=== PATIENT | male | born 1975 | race African-American/Black ===

== ENCOUNTER 2017-09-23 13:09 | Inpatient (IN) | payer OTHER ==
[2017-09-23 13:46] VITALS: BMI 25.8
--- NOTE | 2017-09-23 16:45 | HP ---
CIWA Score - CIWA Score Nausea/Vomitin Muscle Tremors: 4-Moderate,w/Arms Extend Anxiety: 4-Mod. Anxious/Guarded Agitation: 1-Slight > Activity Paroxysmal Sweats: 1-Minimal Palms Moist Orientation: 0-Oriented Tacttile Disturbances: 0-None Auditory Disturbances: 0-None Visual Disturbances: 0-None Headache: 2-Mild CIWA-Ar Total Score: 15 Admission ROS BHS - HPI Chief Complaint: Here for alcohol withdrawal. Allergies/Adverse Reactions: Allergies Allergy/AdvReac Type Severity Reaction Status Date / Time avocado Allergy Severe Hives Verified 09/23/17 13:50 NKDA Allergy Uncoded 09/23/17 13:50 History of Present Illness: Hx alcohol use since age 18. Currently drink vodka, rum, and or beer. Drinks about 12 cans beer and 3-4 pints daily. last drink last night. Hx blackouts in past. No hx. seizures. Marijuana use from age 18. Last use 2-3 days ago. Denies other substance use. Denies significant PMH/PSH. Was detoxed at [facility] about 3 months and maintained sobriety less than 1 week. Is willing to consider maintenance mediation post discharge such as Naltrexone. - Ebola screening Have you traveled outside of the country in the last 21 days: No Have you had contact with anyone from an Ebola affected area: No Have you been sick,other than usual withdrawal symptoms: No Do you have a fever: No - Review of Systems Constitutional: Chills, Loss of Appetite, Unintentional Wgt. Loss (Lost 7-8 lbs over last 2 months.) EENT: reports: No Symptoms Reported Respiratory: reports: No Symptoms reported Cardiac: reports: No Symptoms Reported GI: reports: Nausea : reports: Dysuria (2 weeks ago and evaluated by PCP.) Musculoskeletal: reports: Muscle Pain (states muscle throbbing r/t alcohol withdrawal) Integumentary: reports: No Symptoms Reported Neuro: reports: Headache, Tremors (r/t alcohol withdrawal) Endocrine: reports: No Symptoms Reported (Denies DM or thyroid disorders), Unexplained Weight Loss Hematology: reports: No Symptoms Reported Psychiatric: reports: Orientated x3, Agitated (Voicing concern about admission.) , Anxious (r/t alcohol withdrawal) Patient History - Patient Medical History Hx Asthma: No Hx Chronic Obstructive Pulmonary Disease (COPD): No Hx Cardiac Disorders: No Hx Hypertension: No Hx Hypercholesterolemia: No Hx Pacemaker: No HX Cerebrovascular Accident: No Hx Seizures: No Hx Dementia: No Hx Diabetes: No Hx Gastrointestinal Disorders: No Hx Liver Disease: No Hx Genitourinary Disorders: No Hx Sexually Transmitted Disorders: No Hx Renal Disease (ESRD): No Hx Thyroid Disease: No Hx Human Immunodeficiency Virus (HIV): No (Negative 90 days ago @ [facility]) Hx Hepatitis C: No Hx Depression: No Hx Suicide Attempt: No Hx Bipolar Disorder: No Hx Schizophrenia: No - Patient Surgical History Past Surgical History: Yes Hx Neurologic Surgery: No Hx Cataract Extraction: No Hx Cardiac Surgery: No Hx Lung Surgery: No Hx Breast Surgery: No Hx Breast Biopsy: No Hx Abdominal Surgery: No Hx Appendectomy: No Hx Cholecystectomy: No Hx Genitourinary Surgery: No Hx Section: No Hx Orthopedic Surgery: No Other Surgical History: right inguinal hernia repair in 2010 Anesthesia Reaction: No - PPD History Previous Implant?: Yes Documented Results: Negative w/o proof Implanted On Prior R Admission?: No PPD to be Administered?: Yes - Reproductive History Patient is a Female of Child Bearing Age (11 -55 yrs old): No - Smoking Cessation Smoking history: Current every day smoker Have you smoked in the past 12 months: Yes Aproximately how many cigarettes per day: 6 Hx Chewing Tobacco Use: No Initiated information on smoking cessation: Yes 'Breaking Loose' booklet given: 09/23/17 - Substance & Tx. History Hx Alcohol Use: Yes Hx Substance Use: Yes Substance Use Type: Marijuana Hx Substance Use Treatment: Yes ([facility] 3 months ago) - Substances Abused Alcohol-vodka/rum/beer Route: Oral Frequency: Daily Amount used: 5 pts./2-6 pks. Age of first use: 18 Date of Last Use: 09/22/17 Marijuana Route: Smoking Frequency: 1-2 times per week Amount used: $10 Age of first use: 18 Date of Last Use: 09/21/17 Family Disease History - Family Disease History Family Disease History: Diabetes: Grandparent (Maternal), Heart Disease: Father (Asthma), Respiratory: Father, Mother (Asthma), Brother (Asthma), Sister (Asthma ) Admission Physical Exam BHS - Vital Signs Vital Signs: Vital Signs - 24 hr 09/23/17 13:45 Temperature 98.1 F Pulse Rate 73 Respiratory 18 Rate Blood Pressure 131/82 - Physical General Appearance: Yes: Appropriately Dressed, Tremorous, Anxious HEENTM: Yes: EOMI, Hearing grossly Normal, Normocephalic, ISAEL Respiratory: Yes: Chest Non-Tender, Lungs Clear, Normal Breath Sounds, No Respiratory Distress Neck: Yes: No masses,lesions,Nodules, Supple Breast: Yes: Breast Exam Deferred Cardiology: Yes: Regular Rhythm, Regular Rate, S1, S2 Abdominal: Yes: Non Tender, Flat, Soft, Increased Bowel Sounds Genitourinary: Yes: Within Normal Limits Back: Yes: Normal Inspection Musculoskeletal: Yes: full range of Motion, Gait Steady, Pelvis Stable Extremities: Yes: Normal Capillary Refill, Normal Inspection, Normal Range of Motion, Non-Tender, Tremors (Hands/arms upon extension.) Neurological: Yes: field care advocate II-XII NML intact, Fully Oriented, Motor Strength 5/5, Normal Mood/Affect Integumentary: Yes: Normal Color, Warm Lymphatic: Yes: Within Normal Limits - Diagnostic (1) Alcohol withdrawal Current Visit: Yes Status: Acute Qualifiers: Complication of substance-induced condition: uncomplicated Qualified Code(s ): F10.230 - Alcohol dependence with withdrawal, uncomplicated (2) Cannabis dependence Current Visit: Yes Status: Chronic (3) Nicotine dependence unspecified, with withdrawal Current Visit: Yes Status: Acute Qualifiers: Nicotine product type: cigarettes Qualified Code(s): F17.213 - Nicotine dependence, cigarettes, with withdrawal Cleared for Admission [facility] - Detox or Rehab [facility] Level of Care: Medically Managed Detox Regimen/Protocol: Librium [facility] Breath Alcohol Content Breath Alcohol Content: 0 Urine Drug Screen - Results Drug Screen Negative: No Urine Drug Screen Results: THC-Marijuana
[2017-09-23] MEDS ORDERED: IBUPROFEN 400 MG TABLET (FP) PO PRN (17:24)
[2017-09-23] MEDS ORDERED: hydrOXYzine PAMOATE 50 MG CAPSULE (FP) PO PRN (17:24)
[2017-09-23] MEDS ORDERED: NICOTINE POLACRILEX 2 MG GUM BC PRN (17:24)
[2017-09-23] MEDS ORDERED: LOPERAMIDE HCL 2 MG CAPSULE PO PRN (17:24)
[2017-09-23] MEDS ORDERED: MAGNESIUM CITRATE 300 ML BOTTLE PO PRN (17:24)
[2017-09-23] MEDS ORDERED: P-EPHED 60MG/TRIPROLIDI 2.5MG TABLET PO PRN (17:24)
[2017-09-23] MEDS ORDERED: chlordiazePOXIDE HCL 25 MG CAPSULE PO PRN (17:24)
[2017-09-23] MEDS ORDERED: MAGNESIUM HYDROX 2400MG/30ML ORAL SUSPENSION 30 ML CUP PO PRN (17:24)
[2017-09-23] MEDS ORDERED: MENTHOL/PHENOL 1 EACH UD MM PRN (17:24)
[2017-09-23] MEDS ORDERED: ACETAMINOPHEN 325 MG TABLET (FP) PO PRN (17:24)
[2017-09-23] MEDS ORDERED: guaiFENesin/D-METHORPHAN HB 10 ML UNIT-DOSE CUPS PO PRN (17:24)
[2017-09-23] MEDS ORDERED: MAG HYDROX/AL HYDROX/SIMETH 30 ML UNIT-DOSE CUP PO PRN (17:24)
[2017-09-23] MEDS ORDERED: MELATONIN 5 MG TABLETS PO PRN (22:00)
[2017-09-23] MEDS: THIAMINE HCL 100 MG TABLET (FP) PO SCH (22:26)
[2017-09-23] MEDS: chlordiazePOXIDE HCL 25 MG CAPSULE PO SCH (22:26)
[2017-09-23 22:29] LABS: URINE APPEARANCE CLEAR; URINE BILIRUBIN NEGATIVE (<2.0 mg/dL); URINE COLOR YELLOW; URINE GLUCOSE (UA) NEGATIVE (NEGATIVE); URINE KETONE NEGATIVE (NEGATIVE); URINE LEUK ESTERASE NEGATIVE (NEGATIVE); URINE NITRITE NEGATIVE (NEGATIVE); URINE PROTEIN NEGATIVE (NEGATIVE); URINE UROBILINOGEN 4.0 E.U/dl mg/dL (0.2-1.0)
[2017-09-24] MEDS: chlordiazePOXIDE HCL 25 MG CAPSULE PO SCH ×4 (06:01→22:26)
--- NOTE | 2017-09-24 09:24 | EKG ---
Test Reason : Blood Pressure : / mmHG Vent. Rate : 062 BPM Atrial Rate : 062 BPM P-R Int : 138 ms QRS Dur : 108 ms QT Int : 384 ms P-R-T Axes : 052 016 032 degrees QTc Int : 389 ms NORMAL SINUS RHYTHM NORMAL ECG NO PREVIOUS ECGS AVAILABLE Confirmed by CROW CABRERA, BIBIANA ([id number]) on 09/24/2017 9:23:32 AM Referred By: Confirmed By:BIBIANA MARIA MD
[2017-09-24 09:56] LABS: HEMATOCRIT 43.2 % (35.4-49); HEMOGLOBIN 14.6 GM/dL (11.7-16.9); MCH 31.9 pg (25.7-33.7); MCHC 33.9 g/dl (32.0-35.9); MEAN CELL VOLUME 94.2 fl (80-96); MEAN PLT VOLUME 8.4 fl (7.5-11.1); PLATELET COUNT 250 K/MM3 (134-434); RBC 4.59 M/mm3 (4.00-5.60); RDW 13.6 % (11.9-15.9); WHITE BLOOD COUNT 4.9 K/mm3 (4.0-10.0)
[2017-09-24 10:39] LABS: CHLORIDE 107 mmol/L (98-107); POTASSIUM 4.2 mmol/L (3.5-5.1); SODIUM 140 mmol/L (136-145)
[2017-09-24 10:45] LABS: ALBUMIN 3.2 g/dl (3.4-5.0); ALK PHOS 65 U/L (45-117); ANION GAP 5 (8-16); BILIRUBIN,TOTAL 0.6 mg/dL (0.2-1.0); BLOOD UREA NITROGEN 9 mg/dL (7-18); CALCIUM 8.6 mg/dL (8.5-10.1); CO2 28 mmol/L (21-32); CREATININE 0.9 mg/dL (0.7-1.3); GLUCOSE,RANDOM 95 mg/dL (74-106); SGOT/AST 16 U/L (15-37); SGPT/ALT 22 U/L (12-78); TOT PROT 6.6 g/dl (6.4-8.2)
[2017-09-24] MEDS: PRENATAL VITAMINS W/ FOLIC ACID TABLET (FP) PO SCH (10:53)
[2017-09-24] MEDS: NICOTINE 14 MG/24 HOURS TOPICAL PATCH TD SCH (10:53)
--- NOTE | 2017-09-24 16:28 | PN ---
S CIWA - CIWA Score Nausea/Vomitin-No Nausea/No Vomiting Muscle Tremors: 3 Anxiety: 4-Mod. Anxious/Guarded Agitation: 3 Paroxysmal Sweats: 3 Orientation: 0-Oriented Tacttile Disturbances: 2-Mild Itch/Numbness/Burn Auditory Disturbances: 0-None Visual Disturbances: 0-None Headache: 4-Moderately Severe CIWA-Ar Total Score: 19 BHS Progress Note (SOAP) Subjective: Anxious, H/A, Sweating, Tremors. Objective: PATIENT A & O X 3. NO ACUTE DISTRESS. 09/24/17 16:27 Vital Signs Temperature 98.1 F 09/24/17 13:34 Pulse Rate 64 09/24/17 13:34 Respiratory Rate 18 09/24/17 13:34 Blood Pressure 103/64 09/24/17 13:34 O2 Sat by Pulse Oximetry (%) Laboratory Results - last 24 hr 09/23/17 09/24/17 09/24/17 22:00 08:00 08:00 WBC 4.9 RBC 4.59 Hgb 14.6 Hct 43.2 MCV 94.2 MCH 31.9 MCHC 33.9 RDW 13.6 Plt Count 250 MPV 8.4 Sodium 140 Potassium 4.2 Chloride 107 Carbon Dioxide 28 Anion Gap 5 L BUN 9 Creatinine 0.9 Creat Clearance w eGFR > 60 Random Glucose 95 Calcium 8.6 Total Bilirubin 0.6 AST 16 ALT 22 Alkaline Phosphatase 65 Total Protein 6.6 Albumin 3.2 L Urine Color Yellow Urine Appearance Clear Urine pH 5.0 Ur Specific [place] 1.027 Urine Protein Negative Urine Glucose (UA) Negative Urine Ketones Negative Urine Blood Negative Urine Nitrite Negative Urine Bilirubin Negative Urine Urobilinogen 4.0 e.u/dl Ur Leukocyte Esterase Negative LABS NOTED. RPR RESULT PENDING. 09/24/17 16:28 Assessment: 09/24/17 16:27 WITHDRAWAL SYMPTOMS. Plan: CONTINUE DETOX. INCREASE DAILY PO FLUID INTAKE.
--- NOTE | 2017-09-24 18:18 | PN ---
BHS Progress Note Note: per JONATHAN [place], pt refused his librium pm dose
[2017-09-24] MEDS: THIAMINE HCL 100 MG TABLET (FP) PO SCH (22:26)
[2017-09-25] MEDS: chlordiazePOXIDE HCL 25 MG CAPSULE PO SCH ×3 (06:21→17:52)
--- NOTE | 2017-09-25 09:01 | CONSULT ---
[facility] Psychiatric Consult - Data Date of interview: 09/25/17 Admission source: self-referred Identifying data: 42 y/o male single unemployed , refuses to provide information about his benefits Substance Abuse History: Admitted to Detox for alcohol abuse. Long history of alcohol use. Please refer to addiction counselor summary for more detailed drug history Medical History: Patient denies past acute medcial or surgical illnesses Psychiatric History: He denies psychiatric history, though during the interview process, patient appears angry, irritable and marginally cooperative, he seemed suspicious and somewhat guarded Physical/Sexual Abuse/Trauma History: denied Additional Comment: Marginal cooperation with the examiner Mental Status Exam - Mental Status Exam Alert and Oriented to: Place, Person Cognitive Function: Fair Patient Appearance: Unkempt Mood: Angry Affect: Inappropriate Patient Behavior: Uncooperative Speech Pattern: Inappropriate Voice Loudness: Mildly Loud Thought Process: Intact Thought Disorder: Paranoid Ideation Hallucinations: Denies Suicidal Ideation: Denies Homicidal Ideation: Denies Insight/Judgement: Poor Sleep: Fair Appetite: Fair Muscle strength/Tone: Normal Gait/Station: Normal
[2017-09-25] MEDS: PRENATAL VITAMINS W/ FOLIC ACID TABLET (FP) PO SCH (10:30)
[2017-09-25] MEDS: NICOTINE 14 MG/24 HOURS TOPICAL PATCH TD SCH (10:31)
--- NOTE | 2017-09-25 11:49 | PN ---
S CIWA - CIWA Score Nausea/Vomitin Muscle Tremors: 2 Anxiety: 3 Agitation: 1-Slight > Activity Paroxysmal Sweats: 2 Orientation: 0-Oriented Tacttile Disturbances: 0-None Auditory Disturbances: 0-None Visual Disturbances: 1-Very Mild Sensitivity Headache: 0-None Present CIWA-Ar Total Score: 12 S Progress Note (SOAP) Subjective: interrupted sleep, nausea, body aches Objective: 09/25/17 11:48 Vital Signs Temperature 97.1 F L 09/25/17 09:28 Pulse Rate 66 09/25/17 09:28 Respiratory Rate 18 09/25/17 09:28 Blood Pressure 96/56 09/25/17 09:28 O2 Sat by Pulse Oximetry (%) Laboratory Last Values WBC 4.9 K/mm3 (4.0-10.0) 09/24/17 08:00 RBC 4.59 M/mm3 (4.00-5.60) 09/24/17 08:00 Hgb 14.6 GM/dL (11.7-16.9) 09/24/17 08:00 Hct 43.2 % (35.4-49) 09/24/17 08:00 MCV 94.2 fl (80-96) 09/24/17 08:00 MCH 31.9 pg (25.7-33.7) 09/24/17 08:00 MCHC 33.9 g/dl (32.0-35.9) 09/24/17 08:00 RDW 13.6 % (11.9-15.9) 09/24/17 08:00 Plt Count 250 K/MM3 (134-434) 09/24/17 08:00 MPV 8.4 fl (7.5-11.1) 09/24/17 08:00 Sodium 140 mmol/L (136-145) 09/24/17 08:00 Potassium 4.2 mmol/L (3.5-5.1) 09/24/17 08:00 Chloride 107 mmol/L (98-107) 09/24/17 08:00 Carbon Dioxide 28 mmol/L (21-32) 09/24/17 08:00 Anion Gap 5 (8-16) L 09/24/17 08:00 BUN 9 mg/dL (7-18) 09/24/17 08:00 Creatinine 0.9 mg/dL (0.7-1.3) 09/24/17 08:00 Creat Clearance w eGFR > 60 (>60) 09/24/17 08:00 Random Glucose 95 mg/dL (74-106) 09/24/17 08:00 Calcium 8.6 mg/dL (8.5-10.1) 09/24/17 08:00 Total Bilirubin 0.6 mg/dL (0.2-1.0) 09/24/17 08:00 AST 16 U/L (15-37) 09/24/17 08:00 ALT 22 U/L (12-78) 09/24/17 08:00 Alkaline Phosphatase 65 U/L (45-117) 09/24/17 08:00 Total Protein 6.6 g/dl (6.4-8.2) 09/24/17 08:00 Albumin 3.2 g/dl (3.4-5.0) L 09/24/17 08:00 Urine Color Yellow 09/23/17 22:00 Urine Appearance Clear 09/23/17 22:00 Urine pH 5.0 (5.0-8.0) 09/23/17 22:00 Ur Specific [place] 1.027 (1.001-1.035) 09/23/17 22:00 Urine Protein Negative (NEGATIVE) 09/23/17 22:00 Urine Glucose (UA) Negative (NEGATIVE) 09/23/17 22:00 Urine Ketones Negative (NEGATIVE) 09/23/17 22:00 Urine Blood Negative (NEGATIVE) 09/23/17 22:00 Urine Nitrite Negative (NEGATIVE) 09/23/17 22:00 Urine Bilirubin Negative (<2.0 mg/dL) 09/23/17 22:00 Urine Urobilinogen 4.0 e.u/dl mg/dL (0.2-1.0) 09/23/17 22:00 Ur Leukocyte Esterase Negative (NEGATIVE) 09/23/17 22:00 RPR Titer Nonreactive (NONREACTIVE) 09/24/17 08:00 Assessment: 09/25/17 11:48 AOx3 no distress no adventitious breath sounds full rom withdrawal sx Plan: increase fluids continue detox continue to monitor
[2017-09-25] MEDS: chlordiazePOXIDE 5 MG CAPSULE PO SCH (22:20)
[2017-09-25] MEDS: THIAMINE HCL 100 MG TABLET (FP) PO SCH (22:20)
[2017-09-26] MEDS: chlordiazePOXIDE 5 MG CAPSULE PO SCH ×2 (05:16→10:21)
[2017-09-26] MEDS: NICOTINE 14 MG/24 HOURS TOPICAL PATCH TD SCH (10:21)
[2017-09-26] MEDS: PRENATAL VITAMINS W/ FOLIC ACID TABLET (FP) PO SCH (10:21)
--- NOTE | 2017-09-26 12:40 | PN ---
BHS Progress Note (SOAP) Subjective: Sweats abd cramp sleep disturbance Objective: 09/26/17 12:38 A & O x 3 No acute distress noted Anxious Assessment: 09/26/17 12:39 Withdrawal sx Anxious Plan: Continue detox
--- NOTE | 2017-09-26 13:26 | DS ---
[facility] Detox Discharge Summary Admission Date: 09/23/17 Discharge Date: 09/26/17 - History Additional Comments: Was called by JONATHAN Christensen that pt was asking to leave the unit and was not receptive to encouragement to stay to complete detox. Pt left unit prior to this provider getting to the floor. Unable to evaluate, ut was informed pt was A & O x 3, was in no acute distress and had steady gait. Pertinent Past History: No medical hx - Physical Exam Results Vital Signs: Vital Signs Temperature 98.5 F 09/26/17 09:11 Pulse Rate 73 09/26/17 09:11 Respiratory Rate 18 09/26/17 09:11 Blood Pressure 87/60 09/26/17 09:11 O2 Sat by Pulse Oximetry (%) Pertinent Admission Physical Exam Findings: withdrawal sx - Diagnosis (1) Alcohol dependence with uncomplicated withdrawal Current Visit: Yes Status: Acute (2) Nicotine dependence unspecified, with withdrawal Current Visit: Yes Status: Acute Qualifiers: Nicotine product type: cigarettes Qualified Code(s): F17.213 - Nicotine dependence, cigarettes, with withdrawal (3) Cannabis dependence Current Visit: Yes Status: Chronic - AMA Did Patient Leave Against Medical Advice: Yes
[2017-09-26 13:44] VITALS: BP 89/59; PULSE 76; TEMP 99.1
[2017-09-26] MEDS ORDERED: chlordiazePOXIDE HCL 10 MG CAPSULE PO SCH (23:00)
== END 2017-09-26 12:05 | disposition left against medical advice (07) | DRG 770 ==
LOC: YASAS 13:09 → Y3N 15:39
PROVIDERS: ADMIT Family Medicine Addiction Medicine; ATTEND Family Medicine Addiction Medicine
PROC: HZ2ZZZZ Detoxification Services for Substance Abuse Treatment (ICD-10-PCS; principal; 2017-09-23)
DX: F10.230 Alcohol dependence with withdrawal, uncomplicated (principal); F12.20 Cannabis dependence, uncomplicated; F17.213 Nicotine dependence, cigarettes, with withdrawal; F20.9 Schizophrenia, unspecified; Z91.018 Allergy to other foods
CPT/HCPCS: 36415; 80053; 81003; 85027; 86593; 93005; 93010